=== PATIENT | male | born 1950 | race African-American/Black ===

== ENCOUNTER 2019-05-11 17:08 | Emergency (ER) | payer MEDICARE, MEDICAID ==
[~2019-05-11] VITALS: Ht 167.6 cm; Wt 75.0 kg
[~2019-05-11 17:08] MED LIST: AMLO10TA80 PO; ASPI-1158 PO; CALC667C PO; CARV12.545 PO; CHOL100022 PO; FOLI-43 PO; FOLI1TAB87 PO; FURO40TA5 PO; LEVO500T2 MT; LISI-604 PO; MINO10TA PO; PANT40TA4 PO; SEVE800T8 PO
[2019-05-11 17:59] VITALS: BP 176/105
[2019-05-15] MEDS ORDERED: LEVO500T2 MT (12:35)
== END 2019-05-11 21:32 | disposition left against medical advice (07) ==
LOC: ER 17:08
DX: Z53.21 Procedure and treatment not carried out due to patient leaving prior to being seen by health care provider (principal)